=== PATIENT | female | born 1995 | race Asian ===

== ENCOUNTER 2022-06-16 23:02 | Emergency (ER) | payer BC ==
[2022-06-16] MEDS ORDERED: predniSONE 20 MG TAB ONE (23:33)
[2022-06-16] MEDS ORDERED: DIPHENHYDRAMINE 25 MG TAB/CAP ONE (23:33)
--- NOTE | 2022-06-17 01:35 | EDPHYS ---
Physician Documentation [facility] Name: Merly Vargas Age: 26 yrs Sex: Female : 1995 Arrival Date: 06/16/2022 Time: 23:06 Bed 2 Private MD: ED Physician Servando Puri HPI: 06/16 23:40 This 26 yrs old Female presents to ER via Ambulatory with complaints of Allergic rt Reaction. 23:40 The patient presents with itching, rash, redness of skin. Onset: The symptoms/episode rt began/occurred acutely. She was eating seafood at about 9 PM, when she acutely very itchy, reported swelling to her face, lips. She denied any tongue swelling, difficulty breathing. The patient has never had a similar reaction to seafood his sleep. The patient took some Claritin, she states had significant improvement of the symptoms, denies any facial swelling at the moment, only complaining of urticaria. Symptoms are moderate severity. There are no other aggravating or alleviating factors.. 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 - Social history:: Smoking status: Patient denies any tobacco usage or history of. - Family history:: not pertinent. ROS: 23:40 Constitutional: Negative for fever, chills, and weight loss, Eyes: Negative for injury, rt pain, redness, and discharge, Neck: Negative for injury, pain, and swelling, Cardiovascular: Negative for chest pain, palpitations, and edema, Respiratory: Negative for shortness of breath, cough, wheezing, and pleuritic chest pain, Abdomen/GI: Negative for abdominal pain, nausea, vomiting, diarrhea, and constipation, Neuro: Negative for headache, weakness, numbness, tingling, and seizure, Psych: Negative for depression, anxiety, suicide ideation, homicidal ideation, and hallucinations. 23:40 ENT: Positive for Positive for facial swelling, lip swelling. 23:40 Skin: Positive for Positive for itching, hives. Exam: 23:40 Constitutional: This is a well developed, well nourished patient who is awake, alert, rt and in no acute distress. Head/Face: Normocephalic, atraumatic. Eyes: Pupils equal round and reactive to light, extra-ocular motions intact. Lids and lashes normal. Conjunctiva and sclera are non-icteric and not injected. Cornea within normal limits. Periorbital areas with no swelling, redness, or edema. Neck: Trachea midline, no thyromegaly or masses palpated, and no cervical lymphadenopathy. Supple, full range of motion without nuchal rigidity, or vertebral point tenderness. No Meningismus. Chest/axilla: Normal chest wall appearance and motion. Nontender with no deformity. No lesions are appreciated. Cardiovascular: Regular rate and rhythm with a normal S1 and S2. No gallops, murmurs, or rubs. Normal PMI, no JVD. No pulse deficits. Respiratory: Lungs have equal breath sounds bilaterally, clear to auscultation and percussion. No rales, rhonchi or wheezes noted. No increased work of breathing, no retractions or nasal flaring. Abdomen/GI: Soft, non-tender, with normal bowel sounds. No distension or tympany. No guarding or rebound. No evidence of tenderness throughout. MS/ Extremity: Pulses equal, no cyanosis. Neurovascular intact. Full, normal range of motion. Neuro: Awake and alert, GCS 15, oriented to person, place, time, and situation. Cranial nerves II-XII grossly intact. Motor strength 5/5 in all extremities. Sensory grossly intact. Cerebellar exam normal. Normal gait. Psych: Awake, alert, with orientation to person, place and time. Behavior, mood, and affect are within normal limits. 23:40 ENT: No lip, tongue swelling, stridor. 23:40 Skin: Urticarial rash noted diffusely, no other skin changes. Vital Signs: 23:07 BP 116 / 65; Pulse 105; Resp 18; Temp 98.2; Pulse Ox 99% on R/A; Weight 56.7 kg; Height tw5 5 ft. 1 in. (154.94 cm); Pain 10; 06/17 00:22 BP 99 / 59; Pulse 75; Resp 20; Pulse Ox 99% ; jj7 01:29 BP 104 / 74; Pulse 99; Resp 17; Pulse Ox 100% ; Pain 0/10; jj7 06/16 23:07 Body Mass Index 23.62 (56.70 kg, 154.94 cm) tw5 MDM: 06/16 23:14 Patient medically screened. rt 06/17 01:38 Differential diagnosis: anaphylaxis, angioedema, urticaria. Data reviewed: vital signs, rt nurses notes. Response to treatment: the patient's symptoms have resolved after treatment. ED course: Presents to the ED with urticaria after eating seafood. In the ED, she does not meet criteria for anaphylaxis. She was given steroids, Benadryl in the ED with complete resolution of the symptoms. The patient was observed for period time in the ED with no recurrence of the symptoms. She was instructed to abstain from seafood until she can obtain allergy testing. She verbalized understanding. Will treat with a course of steroids. The patient will be given prescriptions for EpiPen's, she was instructed on their use and instructed to go to the nearest ER if she needs to use them. Patient to follow-up as an outpatient, return precautions discussed.. Administered Medications: 06/16 23:39 Drug: predniSONE 40 mg Route: PO; j7 06/17 01:35 Follow up: Response: No adverse reaction as6 01:41 Follow up: Response: Marked relief of symptoms 7 06/16 23:39 Drug: Benadryl (diphenhydrAMINE) 50 mg Route: PO; j7 06/17 01:35 Follow up: Response: No adverse reaction as6 01:41 Follow up: Response: Marked relief of symptoms Disposition Summary: 06/17/22 01:34 Discharge Ordered Location: Home rt Problem: new rt Symptoms: are resolved rt Condition: Stable rt Diagnosis - Allergic urticaria rt Followup: rt - With: Private Physician - When: 2 - 3 days - Reason: Discharge Instructions: - Discharge Summary Sheet rt - Allergies, Adult rt - Anaphylactic Reaction, Adult rt Forms: - Medication Reconciliation Form rt - Thank You Letter rt - Antibiotic Education rt - Prescription Opioid Use rt Prescriptions: - EPIPEN - inject 1 application by INTRAMUSCULAR route one time; 2 ampule; Refills: 0, rt Product Selection Permitted - Prednisone 20 mg Oral Tablet - take 1 tablet by ORAL route once daily for 4 days; 4 tablet; Refills: 0, rt Product Selection Permitted Signatures: Su Atkinson tw5 Monet Brurows RN RN jj7 Servando Puri MD MD rt Adán Dorsey RN as6
--- NOTE | 2022-06-17 01:35 | ER ---
Nurse's Notes [facility] Name: Merly Vargas Age: 26 yrs Sex: Female : 1995 Arrival Date: 06/16/2022 Time: 23:06 Bed 2 Private MD: Diagnosis: Allergic urticaria Presentation: 06/16 23:07 Chief complaint: Patient states: "I was eating at a restaurant in [place]. I had some tw5 chicken, crab, and redfish. I started to notice that my throat and lips were getting kind of itchy so I stopped eating. On the way home is when my body broke out in hives. This has never happened to me before.". Coronavirus screen: Vaccine status: Patient reports receiving the 2nd dose of the covid vaccine. Jagex. Ebola Screen: Patient negative for fever greater than or equal to 101.5 degrees Fahrenheit, and additional compatible Ebola Virus Disease symptoms Patient denies exposure to infectious person. Patient denies travel to an Ebola-affected area in the 21 days before illness onset. Onset: The symptoms/episode began/occurred suddenly, 1 hour(s) ago. Anaphylaxis evaluation, no signs or symptoms of anaphylaxis were noted. Initial Sepsis Screen: Does the patient meet any 2 criteria? No. Patient's initial sepsis screen is negative. Does the patient have a suspected source of infection? No. Patient's initial sepsis screen is negative. Risk Assessment: Do you want to hurt yourself or someone else? Patient reports no desire to harm self or others. Onset of symptoms was June 16, 2022 at 22:00. 23:07 Method Of Arrival: Ambulatory tw5 23:07 Acuity: LIBAN 2 tw5 Triage Assessment: 23:09 General: Appears in no apparent distress. Behavior is calm, cooperative, appropriate tw5 for age. Pain: Pain currently is 3 out of 10 on a pain scale. 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 - Social history:: Smoking status: Patient denies any tobacco usage or history of. - Family history:: not pertinent. Screenin:26 [facility] ED Fall Risk Assessment (Adult) History of falling in the last 3 months, jj7 including since admission No falls in past 3 months (0 pts) Confusion or Disorientation No (0 pts) Intoxicated or Sedated No (0 pts) Impaired Gait No (0 pts) Mobility Assist Device Used No (0 pt) Altered Elimination No (0 pt) Score/Fall Risk Level 0 - 2 = Low Risk. Abuse screen: Denies threats or abuse. Nutritional screening: No deficits noted. Tuberculosis screening: No symptoms or risk factors identified. Assessment: 23:26 General: Appears in no apparent distress. uncomfortable, Behavior is cooperative. jj7 Respiratory: No deficits noted. Airway is patent Respiratory effort is even, unlabored. Derm: Reports itching, HIVES/RASH. 06/17 01:30 Reassessment: Patient is alert, oriented x 3, equal unlabored respirations, skin jj7 warm/dry/pink. Patient states symptoms have improved. Vital Signs: 06/16 23:07 BP 116 / 65; Pulse 105; Resp 18; Temp 98.2; Pulse Ox 99% on R/A; Weight 56.7 kg; Height tw5 5 ft. 1 in. (154.94 cm); Pain 3/10; 06/17 00:22 BP 99 / 59; Pulse 75; Resp 20; Pulse Ox 99% ; jj7 01:29 BP 104 / 74; Pulse 99; Resp 17; Pulse Ox 100% ; Pain 0/10; jj7 06/16 23:07 Body Mass Index 23.62 (56.70 kg, 154.94 cm) tw5 ED Course: 06/16 23:06 Patient arrived in ED. tw5 23:08 Servando Puri MD is Attending Physician. rt 23:09 Triage completed. tw5 23:09 Arm band placed on. tw5 23:15 Adán Dorsey, RY is Primary Nurse. as6 23:26 Patient has correct armband on for positive identification. Bed in low position. Call jj7 light in reach. Adult w/ patient. Warm blanket given. 06/17 01:35 No provider procedures requiring assistance completed. Patient did not have IV access as6 during this emergency room visit. Administered Medications: 06/16 23:39 Drug: predniSONE 40 mg Route: PO; jj7 06/17 01:35 Follow up: Response: No adverse reaction as6 01:41 Follow up: Response: Marked relief of symptoms jj7 06/16 23:39 Drug: Benadryl (diphenhydrAMINE) 50 mg Route: PO; jj7 06/17 01:35 Follow up: Response: No adverse reaction as6 01:41 Follow up: Response: Marked relief of symptoms jj7 Medication: 06/16 23:26 VIS not applicable for this client. jj7 Outcome: 06/17 01:34 Discharge ordered by . rt 01:40 Discharged to home ambulatory, with significant other. jj7 01:40 Condition: improved 01:40 Discharge instructions given to patient, significant other, Instructed on discharge instructions, follow up and referral plans. medication usage, Demonstrated understanding of instructions, follow-up care, medications, Prescriptions given X 2. 01:41 Patient left the ED. jj7 Signatures: Su Atkinson tw5 Adán Dorsey RN RN as6 Monet Burrows RN RN jj7 Servando Puri MD MD rt
[2022-06-17 01:50] VITALS: BP 104/74; O2SAT 100
[2022-06-17 01:57] VITALS: TEMP 98.5
== END 2022-06-17 01:41 | disposition home or self-care (01) ==
LOC: ER 23:02
DX: L50.0 Allergic urticaria (principal)
CPT/HCPCS: 99283; J7512